=== PATIENT | male | born 1945 | race Caucasian/White ===

== ENCOUNTER → 2017-07-21 17:36 | Outpatient (CLI) | payer MEDICARE, MEDICAID ==
[2011-06-11 14:36] VITALS: BMI 27.4
== END | disposition home or self-care (01) ==
LOC: D.LABREF 17:36
DX: R31.9 Hematuria, unspecified (principal)

== ENCOUNTER 2018-03-30 05:30 | Day surgery (SDC) | payer MEDICARE, MEDICAID ==
[2018-03-29 09:32] LABS: BASOPHILS 0.5 % (0-2); EOSINOPHILS 2.3 % (0-7); HEMATOCRIT 36.3 % (42.0-54.0); HEMOGLOBIN 11.8 g/dL (13.5-17.5); IMMATURE GRANULOCYTES 0.2 % (0-5); LYMPHOCYTES 36.3 % (15-50); MCH 28.1 pg (26.0-34.0); MCHC 32.5 g/dL (31.0-37.0); MCV 86.4 fL (80.0-100.0); MEAN PLATELET VOLUME 10.9 fL (7.4-10.4); MONOCYTES 9.4 % (2-11); NEUTROPHILS 51.3 % (40-80); PLATELET COUNT 225 10x3/uL (130-400); RDW 17.1 % (11.5-14.5); WBC 8.2 10x3/uL (4.8-10.8)
[2018-03-29 09:48] LABS: CALCIUM 8.9 mg/dL (8.5-10.1); CARBON DIOXIDE 25.8 mmol/L (21.0-32.0); CREATININE - SERUM 1.4 mg/dL (0.6-1.3); POTASSIUM - SERUM 3.8 mmol/L (3.5-5.1)
[2018-03-29 09:49] LABS: INR 0.89 (0.85-1.17); PROTIME 11.7 SECONDS (11.6-15.0)
[2018-03-29 09:51] LABS: APTT 28.6 SECONDS (22.8-39.4)
[~2018-03-30] VITALS: Ht 175.3 cm; Wt 87.1 kg
--- NOTE | ~2018-03-30 | OP ---
PATIENT NAME: JODI HOFFMAN MEDICAL RECORD: [id number] :44 LOCATION:[facility] ADMISSION DATE: SURGEON: EASTON NEWBY MD DATE OF OPERATION: 03/30/2018 SURGEON: Easton Newby MD ANESTHESIA: General anesthesia by Anam Nelson CRNA. PREOPERATIVE DIAGNOSIS: Obstructive BPH. PROCEDURES: Cystoscopy, GreenLight laser transurethral resection of the prostate, power 80 toure, energy 25,575 kilojoules, laser on time 5 minutes 28 seconds. FINDINGS: On Cystoscopy, bilateral lateral lobe hyperplasia. Single ureteral orifices bilaterally with no bladder tumors seen. BLOOD LOSS: None. CLINICAL HISTORY: This is a 72-year-old male, who has symptoms of obstructive BPH. He was treated with tamsulosin, but this made him dizzy and faint and so he had to stop it. I had him on finasteride for at least 8 months and he is still not having any improvement in his voiding symptoms. He has a very slow urinary stream, which is stop and go. He is not certain if he is emptying his bladder. He has nocturia times 2-3. Since his symptoms with the finasteride are not improved after quite a few months of treatment, he decided to proceed with a GreenLight laser TURP. He is aware of the risks of surgery including bleeding, infection, and urinary incontinence. 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 He also has hypertension and issues of balance. He is allergic to MORPHINE. He was given Levaquin IV second baller to the OR. He had cardiac clearance from Dr. Zhong. DESCRIPTION OF PROCEDURE: The patient was given induction of general anesthesia. He was placed in the dorsal lithotomy position and prepped and draped. The laser resectoscope was introduced using the visual obturator and the 30-degree lens. Penile urethra was normal with no strictures. The prostatic urethra was obstructed by enlarged lateral lobes, which meet in the midline. The median lobe was insignificant and not present. Towards the bladder neck, there seemed to be some signs of a previous TURP. Going into the bladder, there are single ureteral orifices on each side. The bladder was mildly trabeculated. No bladder tumors were seen. We then switched to the laser bridge and introduced the laser fiber. Resection was performed using 80 toure of power only. The resection went from the bladder neck to just proximal to the verumontanum. The verumontanum was spared throughout the entire procedure. As the posterior portion was really minimal, I took down the bladder neck and then took down each of the lateral lobes and turned down to the pseudocapsule. At the apex, we took down just enough tissue lateral to the verumontanum to prevent obstruction and to prevent any bleeding. At the end of the procedure, there was a wide open channel from the verumontanum into the bladder neck. No bleeding of any kind was seen when the irrigation fluid was turned off. A Sensor wire was then placed into the bladder through the scope. The scope was removed leaving the wire in place. A 22-Spanish 3-way [place] tip Ballard catheter was placed into the bladder over a wire. The Ballard catheter OPERATIVE REPORT [id number] JODI HOFFMAN R balloon was then inflated with 30 cc of sterile water. The wire was then removed entirely. The inflow port of the Ballard catheter was plugged using a catheter plug. The Ballard catheter was put to bag drainage. The patient will be going home today with a prescription for Tylenol No. 3 and the Ballard catheter. He will come to my office either tomorrow or on Wednesday to have the Ballard catheter removed for a voiding trial. TRANSINT:[id number] Voice Confirmation ID: [id number] DOCUMENT ID: [id number] EASTON NEWBY MD at 1726 CC: [id number] DICTATION DATE: 03/30/18 0838 [employer] [facility] BRAZER: 03/30/18 1237 [facility] 03/30/18 [id number] [place] [id number]
[~2018-03-30 05:30] MED LIST: ARAVA10 MG PO; KEPPRA500 MG PO; NEURONTIN 300300 MG PO; NORVASC10 MG PO; PREDNISONE1 MG PO; PROSCAR5 MG PO; PYRIDOXINE HCL100 MG PO; TOPROL XL50 MG PO; ZESTRIL40 MG PO
[2018-03-30 06:40] VITALS: BP 119/63; Ht 175.3 cm; Wt 87.1 kg
== END 2018-03-30 10:40 | disposition home or self-care (01) ==
LOC: D.OPS 05:30 → D.PAN 07:30 → D.OPS 10:40
PROVIDERS: Anesthesiology
DX: N40.1 Benign prostatic hyperplasia with lower urinary tract symptoms (principal); N13.8 Other obstructive and reflux uropathy; R35.1 Nocturia; R39.12 Poor urinary stream; G40.409 Other generalized epilepsy and epileptic syndromes, not intractable, without status epilepticus; I10 Essential (primary) hypertension; Z88.5 Allergy status to narcotic agent; Z01.812 Encounter for preprocedural laboratory examination

== ENCOUNTER 2018-05-23 14:54 | Emergency (ER) | payer MEDICARE, MEDICAID ==
[~2018-05-23] VITALS: Ht 175.3 cm; Wt 85.5 kg
[2018-05-23 15:00] VITALS: Ht 175.3 cm; Wt 85.5 kg
[2018-05-23 17:31] LABS: BASOPHILS 0.3 % (0-2); EOSINOPHILS 1.3 % (0-7); HEMATOCRIT 33.8 % (42.0-54.0); HEMOGLOBIN 10.9 g/dL (13.5-17.5); IMMATURE GRANULOCYTES 0.3 % (0-5); LYMPHOCYTES 26.9 % (15-50); MCH 27.9 pg (26.0-34.0); MCHC 32.2 g/dL (31.0-37.0); MCV 86.7 fL (80.0-100.0); MEAN PLATELET VOLUME 11.3 fL (7.4-10.4); MONOCYTES 6.3 % (2-11); NEUTROPHILS 64.9 % (40-80); PLATELET COUNT 256 10x3/uL (130-400); WBC 6.4 10x3/uL (4.8-10.8)
[2018-05-23 17:57] LABS: APPEARANCE HAZY (CLEAR); BILIRUBIN NEGATIVE (NEGATIVE); COLOR YELLOW (YELLOW); GLUCOSE NEGATIVE (NEGATIVE); KETONE NEGATIVE (NEGATIVE); NITRITE NEGATIVE (NEGATIVE); PROTEIN 1+ mg/dL (NEGATIVE); SPECIFIC GRAVITY 1.015 (1.005-1.020); UROBILINOGEN NORMAL (NORMAL)
[2018-05-23 17:58] LABS: RED CELLS - URINE >50 /hpf (0-5)
[2018-05-23 17:59] LABS: BACTERIA MODERATE /hpf (NONE SEEN)
[2018-05-23 18:05] LABS: ALBUMIN 3.1 g/dL (3.4-5.0); ALKALINE PHOSPHATASE 117 U/L (46-116); ALT (SGPT) 28 U/L (10-68); BILIRUBIN - TOTAL 0.24 mg/dL (0.2-1.3); CALC OSMOLALITY 288 mosm/kg (275-300); CALCIUM 9.1 mg/dL (8.5-10.1); CHLORIDE - SERUM 108 mmol/L (98-107); CREATININE - SERUM 1.5 mg/dL (0.6-1.3); GLUCOSE 109 mg/dL (74-106); POTASSIUM - SERUM 3.9 mmol/L (3.5-5.1); PROTEIN - SERUM 7.6 g/dL (6.4-8.2); SODIUM 141 mmol/L (136-145); UREA NITROGEN 33 mg/dL (7-18); eGFR NON AFRICAN AMERICAN 49 mL/min (90-120)
[2018-05-23 18:16] LABS: CKMB 1.7 U/L (0.0-3.6); CREATINE KINASE 65 UL (21-232); PRO BNP 215 pg/mL (0-125); THYROID STIMULATING HORMONE 1.34 uIU/mL (0.36-3.74)
[2018-05-23 18:17] LABS: TROPONIN-I < 0.017 ng/mL (0.000-0.060)
[2018-05-23] MEDS ORDERED: CYCLOBENZAPRINE10 MG PO (20:12)
[2018-05-23] MEDS ORDERED: VIBRAMYCIN 100100 MG PO (20:12)
[2018-05-23 21:48] VITALS: BP 158/82
== END 2018-05-23 21:01 | disposition home or self-care (01) ==
LOC: D.ER 14:54
PROVIDERS: Family Medicine
DX: N39.0 Urinary tract infection, site not specified (principal); M62.838 Other muscle spasm; M50.30 Other cervical disc degeneration, unspecified cervical region

== ENCOUNTER → 2018-06-07 13:14 | Outpatient (CLI) | payer MEDICARE, MEDICAID ==
[2018-05-23 15:00] VITALS: BMI 27.8
[~2018-06-07 13:14] MED LIST changes: +CYCLOBENZAPRINE10 MG PO; +FERROUS SULFAT325 MG PO; +VIBRAMYCIN 100100 MG PO; +ZOCOR40 MG PO
== END | disposition home or self-care (01) ==
LOC: D.MRI 05-30 10:30
DX: M54.12 Radiculopathy, cervical region (principal)

== ENCOUNTER 2018-06-18 13:11 | Inpatient (IN) | payer MEDICARE, MEDICAID ==
[2018-06-18] VITALS (7 sets, daily range): BP systolic 146–164; BP diastolic 68–95
[~2018-06-18] VITALS: Ht 175.3 cm; Wt 81.6 kg
[~2018-06-18 13:11] MED LIST changes: -FERROUS SULFAT325 MG PO; -ZOCOR40 MG PO
[2018-06-18 14:27] LABS: BASOPHILS 0.2 % (0-2); EOSINOPHILS 2.4 % (0-7); IMMATURE GRANULOCYTES 0.2 % (0-5); LYMPHOCYTES 13.9 % (15-50); MCH 28.2 pg (26.0-34.0); MEAN PLATELET VOLUME 10.4 fL (7.4-10.4); MONOCYTES 7.2 % (2-11); NEUTROPHILS 76.1 % (40-80); PLATELET COUNT 303 10x3/uL (130-400); RBC 2.84 10x6/uL (4.20-6.10); RDW 16.9 % (11.5-14.5); WBC 5.5 10x3/uL (4.8-10.8)
[2018-06-18 14:46] LABS: ALBUMIN 2.3 g/dL (3.4-5.0); ALKALINE PHOSPHATASE 78 U/L (46-116); ALT (SGPT) 18 U/L (10-68); BILIRUBIN - TOTAL 0.23 mg/dL (0.2-1.3); CALC OSMOLALITY 283 mosm/kg (275-300); CALCIUM 8.9 mg/dL (8.5-10.1); CARBON DIOXIDE 23.7 mmol/L (21.0-32.0); CHLORIDE - SERUM 106 mmol/L (98-107); CREATININE - SERUM 1.3 mg/dL (0.6-1.3); GLUCOSE 95 mg/dL (74-106); POTASSIUM - SERUM 4.1 mmol/L (3.5-5.1); PROTEIN - SERUM 7.4 g/dL (6.4-8.2); SODIUM 139 mmol/L (136-145); UREA NITROGEN 29 mg/dL (7-18); eGFR NON AFRICAN AMERICAN 57 mL/min (90-120)
[2018-06-18 14:56] LABS: CKMB 1.5 U/L (0.0-3.6); CREATINE KINASE 159 UL (21-232); TROPONIN-I < 0.017 ng/mL (0.000-0.060)
[2018-06-18 15:27] LABS: % SATURATION 7 % (15-55); IRON 15 ug/dl (35-150); TOTAL IRON BIND CAPACITY 191 ug/dl (260-445); UNSAT IRON BIND CAPACITY 176 ug/dl (150-375)
[2018-06-18] MEDS ORDERED: ZOCOR40 MG PO (18:08)
[2018-06-19 03:51] VITALS: BP 150/75
[2018-06-19 06:08] LABS: BASOPHILS 0.2 % (0-2); EOSINOPHILS 3.9 % (0-7); HEMATOCRIT 26.3 % (42.0-54.0); HEMOGLOBIN 8.6 g/dL (13.5-17.5); IMMATURE GRANULOCYTES 0.2 % (0-5); LYMPHOCYTES 18.2 % (15-50); MCH 28.4 pg (26.0-34.0); MCHC 32.7 g/dL (31.0-37.0); MCV 86.8 fL (80.0-100.0); MEAN PLATELET VOLUME 10.3 fL (7.4-10.4); MONOCYTES 9.8 % (2-11); NEUTROPHILS 67.7 % (40-80); PLATELET COUNT 298 10x3/uL (130-400); RBC 3.03 10x6/uL (4.20-6.10); RDW 16.6 % (11.5-14.5); WBC 5.1 10x3/uL (4.8-10.8)
[2018-06-19 06:32] LABS: INR 1.16 (0.85-1.17); PROTIME 14.4 SECONDS (11.6-15.0)
[2018-06-19 06:44] LABS: CALC OSMOLALITY 288 mosm/kg (275-300); CALCIUM 8.2 mg/dL (8.5-10.1); CARBON DIOXIDE 21.8 mmol/L (21.0-32.0); CHLORIDE - SERUM 110 mmol/L (98-107); GLUCOSE 89 mg/dL (74-106); POTASSIUM - SERUM 3.9 mmol/L (3.5-5.1); SODIUM 144 mmol/L (136-145); UREA NITROGEN 22 mg/dL (7-18); eGFR NON AFRICAN AMERICAN 78 mL/min (90-120)
[2018-06-19 08:23] VITALS: BP 143/71
[2018-06-19 12:33] VITALS: BP 140/86
[2018-06-19 17:13] VITALS: BP 172/82
[2018-06-19 22:51] VITALS: BP 159/73
[2018-06-20] VITALS (13 sets, daily range): BP systolic 141–179; BP diastolic 57–87; Ht 175.3 cm; Wt 81.6 kg
[2018-06-20 06:31] LABS: BASOPHILS 0.2 % (0-2); EOSINOPHILS 5.1 % (0-7); HEMATOCRIT 25.8 % (42.0-54.0); HEMOGLOBIN 8.2 g/dL (13.5-17.5); IMMATURE GRANULOCYTES 0.2 % (0-5); LYMPHOCYTES 18.8 % (15-50); MCH 27.8 pg (26.0-34.0); MCHC 31.8 g/dL (31.0-37.0); MCV 87.5 fL (80.0-100.0); MEAN PLATELET VOLUME 10.1 fL (7.4-10.4); MONOCYTES 8.7 % (2-11); PLATELET COUNT 322 10x3/uL (130-400); RBC 2.95 10x6/uL (4.20-6.10); RDW 16.8 % (11.5-14.5); WBC 4.9 10x3/uL (4.8-10.8)
[2018-06-20 06:50] LABS: ANION GAP 10.3 mmol/L (8-16); CALCIUM 8.3 mg/dL (8.5-10.1); CARBON DIOXIDE 23.1 mmol/L (21.0-32.0); CREATININE - SERUM 1.2 mg/dL (0.6-1.3); POTASSIUM - SERUM 3.4 mmol/L (3.5-5.1)
[2018-06-20 07:18] LABS: T4 THYROXIN - FREE 1.11 ng/dL (0.76-1.46); THYROID STIMULATING HORMONE 1.01 uIU/mL (0.36-3.74)
[2018-06-21 04:18] VITALS: BP 179/80
[2018-06-21 06:41] LABS: BASOPHILS 0.2 % (0-2); HEMATOCRIT 30.4 % (42.0-54.0); IMMATURE GRANULOCYTES 0.6 % (0-5); LYMPHOCYTES 26.9 % (15-50); MCH 28.8 pg (26.0-34.0); MCHC 32.9 g/dL (31.0-37.0); MCV 87.6 fL (80.0-100.0); MEAN PLATELET VOLUME 9.9 fL (7.4-10.4); MONOCYTES 7.6 % (2-11); NEUTROPHILS 60.7 % (40-80); PLATELET COUNT 305 10x3/uL (130-400); RBC 3.47 10x6/uL (4.20-6.10); RDW 16.3 % (11.5-14.5); WBC 5.3 10x3/uL (4.8-10.8)
[2018-06-21 07:02] LABS: CALC OSMOLALITY 288 mosm/kg (275-300); CALCIUM 7.9 mg/dL (8.5-10.1); CARBON DIOXIDE 21.4 mmol/L (21.0-32.0); CHLORIDE - SERUM 112 mmol/L (98-107); CREATININE - SERUM 0.9 mg/dL (0.6-1.3); GLUCOSE 92 mg/dL (74-106); POTASSIUM - SERUM 3.7 mmol/L (3.5-5.1); SODIUM 145 mmol/L (136-145); UREA NITROGEN 12 mg/dL (7-18); eGFR NON AFRICAN AMERICAN 88 mL/min (90-120)
[2018-06-21 08:06] VITALS: BP 158/71
[2018-06-21 11:34] VITALS: BP 184/90
[2018-06-21 15:40] VITALS: BP 173/81
[2018-06-21 19:46] VITALS: BP 175/97
[2018-06-21 23:25] VITALS: BP 151/73
[2018-06-22 03:42] VITALS: BP 153/75
[2018-06-22 06:28] LABS: BASOPHILS 0.2 % (0-2); EOSINOPHILS 3.5 % (0-7); HEMOGLOBIN 10.2 g/dL (13.5-17.5); IMMATURE GRANULOCYTES 0.6 % (0-5); LYMPHOCYTES 24.2 % (15-50); MCH 28.7 pg (26.0-34.0); MCHC 32.9 g/dL (31.0-37.0); MCV 87.3 fL (80.0-100.0); MEAN PLATELET VOLUME 9.9 fL (7.4-10.4); MONOCYTES 8.9 % (2-11); NEUTROPHILS 62.6 % (40-80); PLATELET COUNT 336 10x3/uL (130-400); RBC 3.55 10x6/uL (4.20-6.10); RDW 16.3 % (11.5-14.5); WBC 5.2 10x3/uL (4.8-10.8)
[2018-06-22 06:30] LABS: CALC OSMOLALITY 289 mosm/kg (275-300); CALCIUM 8.4 mg/dL (8.5-10.1); CARBON DIOXIDE 23.6 mmol/L (21.0-32.0); CHLORIDE - SERUM 110 mmol/L (98-107); CREATININE - SERUM 0.9 mg/dL (0.6-1.3); GLUCOSE 90 mg/dL (74-106); POTASSIUM - SERUM 3.9 mmol/L (3.5-5.1); SODIUM 145 mmol/L (136-145); UREA NITROGEN 14 mg/dL (7-18); eGFR NON AFRICAN AMERICAN 88 mL/min (90-120)
[2018-06-22 07:54] VITALS: BP 120/71
[2018-06-22 12:18] VITALS: BP 121/62
[2018-06-22] MEDS ORDERED: FERROUS SULFAT325 MG PO (14:35)
[2018-06-22 15:44] VITALS: BP 129/70
== END 2018-06-22 17:41 | disposition home health service (06) | DRG 378 ==
LOC: D.ER 13:11 → OBSVTIME 17:10 → D.MS 17:10
PROVIDERS: Family Medicine; Internal Medicine Gastroenterology; Internal Medicine Nephrology
PROC: 0DB78ZX Excision of Stomach, Pylorus, Via Natural or Artificial Opening Endoscopic, Diagnostic (ICD-10-PCS; 2018-06-19)
PROC: 0DB68ZX Excision of Stomach, Via Natural or Artificial Opening Endoscopic, Diagnostic (ICD-10-PCS; 2018-06-19)
PROC: 0DB98ZX Excision of Duodenum, Via Natural or Artificial Opening Endoscopic, Diagnostic (ICD-10-PCS; principal; 2018-06-19 09:00)
DX: K29.61 Other gastritis with bleeding (principal); N17.9 Acute kidney failure, unspecified; N13.8 Other obstructive and reflux uropathy; I10 Essential (primary) hypertension; N40.1 Benign prostatic hyperplasia with lower urinary tract symptoms; D50.0 Iron deficiency anemia secondary to blood loss (chronic); K44.9 Diaphragmatic hernia without obstruction or gangrene; G40.909 Epilepsy, unspecified, not intractable, without status epilepticus; Z85.038 Personal history of other malignant neoplasm of large intestine; R63.4 Abnormal weight loss; Z68.26 Body mass index [BMI] 26.0-26.9, adult; M62.830 Muscle spasm of back; N28.1 Cyst of kidney, acquired; K63.5 Polyp of colon; M50.30 Other cervical disc degeneration, unspecified cervical region

== ENCOUNTER 2019-06-21 15:56 | Emergency (ER) | payer MEDICARE, MEDICAID ==
[~2019-06-21] VITALS: Ht 175.3 cm; Wt 86.8 kg
[~2019-06-21 15:56] MED LIST changes: +FERROUS SULFAT325 MG PO; +ZOCOR40 MG PO
[2019-06-21 15:58] VITALS: Ht 175.3 cm; Wt 86.8 kg
[2019-06-21] MEDS ORDERED: KEPPRA1000 MG PO (16:04)
[2019-06-21] MEDS ORDERED: GEMFIBROZIL600 MG PO (16:04)
[2019-06-21] MEDS ORDERED: HYDRALAZINE HCL50 MG PO (16:05)
[2019-06-21] MEDS ORDERED: OMEPRAZOLE40 MG PO (16:06)
[2019-06-21] MEDS ORDERED: FLOMAX0.4 MG PO (16:06)
[2019-06-21] MEDS ORDERED: LIPITOR10 MG PO (16:07)
[2019-06-21 16:51] LABS: BASOPHILS 0.2 % (0-2); EOSINOPHILS 0.8 % (0-7); HEMATOCRIT 27.7 % (42.0-54.0); HEMOGLOBIN 8.6 g/dL (13.5-17.5); IMMATURE GRANULOCYTES 0.3 % (0-5); LYMPHOCYTES 17.9 % (15-50); MCH 25.9 pg (26.0-34.0); MCV 83.4 fL (80.0-100.0); MEAN PLATELET VOLUME 10.3 fL (7.4-10.4); MONOCYTES 10.1 % (2-11); NEUTROPHILS 70.7 % (40-80); RBC 3.32 10x6/uL (4.20-6.10); RDW 19.3 % (11.5-14.5)
[2019-06-21 16:59] LABS: PLATELET COUNT 117 10x3/uL (130-400)
[2019-06-21 17:03] LABS: INR 1.06 (0.85-1.17); PROTIME 13.3 SECONDS (11.6-15.0)
[2019-06-21 17:04] LABS: APTT 34.5 SECONDS (22.8-39.4)
[2019-06-21 17:15] LABS: ALBUMIN 2.6 g/dL (3.4-5.0); ALKALINE PHOSPHATASE 67 U/L (46-116); ALT (SGPT) 24 U/L (10-68); BILIRUBIN - TOTAL 0.63 mg/dL (0.2-1.3); CALC OSMOLALITY 285 mosm/kg (275-300); CALCIUM 8.4 mg/dL (8.5-10.1); CARBON DIOXIDE 26.8 mmol/L (21.0-32.0); CHLORIDE - SERUM 107 mmol/L (98-107); CREATININE - SERUM 1.6 mg/dL (0.6-1.3); GLUCOSE 83 mg/dL (74-106); POTASSIUM - SERUM 3.9 mmol/L (3.5-5.1); PROTEIN - SERUM 6.1 g/dL (6.4-8.2); SODIUM 141 mmol/L (136-145); UREA NITROGEN 28 mg/dL (7-18); eGFR NON AFRICAN AMERICAN 45 mL/min (90-120)
[2019-06-21 17:23] LABS: CREATINE KINASE 84 UL (21-232); LIPASE 89 U/L (73-393); PRO BNP 1235 pg/mL (0-450)
[2019-06-21 17:33] LABS: TROPONIN-I < 0.017 ng/mL (0.000-0.060)
[2019-06-21 19:12] LABS: APPEARANCE CLEAR (CLEAR); BILIRUBIN NEGATIVE (NEGATIVE); COLOR YELLOW (YELLOW); GLUCOSE NEGATIVE (NEGATIVE); KETONE NEGATIVE (NEGATIVE); NITRITE NEGATIVE (NEGATIVE); PROTEIN TRACE mg/dL (NEGATIVE); UROBILINOGEN NORMAL (NORMAL)
[2019-06-21 22:24] VITALS: BP 152/72
== END 2019-06-21 21:54 | disposition other institution (70) ==
LOC: D.ER 15:56
PROVIDERS: Family Medicine
DX: D64.9 Anemia, unspecified (principal); N28.9 Disorder of kidney and ureter, unspecified; G40.909 Epilepsy, unspecified, not intractable, without status epilepticus